=== PATIENT | male | born 1940 | race Caucasian/White ===

== ENCOUNTER 2021-09-16 08:06 | Outpatient (CLI) | payer MEDICARE, OTHER | END 2021-09-16 23:59 | disposition home or self-care (01) | LOC: LAB 08:06 | PROVIDERS: ATTEND Surgery | DX: Z01.812 Encounter for preprocedural laboratory examination (principal); Z20.822 Contact with and (suspected) exposure to COVID-19 ==

== ENCOUNTER 2021-09-18 10:31 | Day surgery (SDC) | payer MEDICARE, OTHER ==
[2021-09-18 11:09] LABS: *BILIRUBIN,URIN NEGATIVE (NEGATIVE); *BLOOD, URINE NEGATIVE (NEGATIVE); *CLARITY,URINE CLEAR (CLEAR); *COLOR,URINE YELLOW (YELLOW); *KETONES,URINE NEGATIVE (NEGATIVE); *UROBILINOGEN,URINE 0.2 E.U./dl (NORMAL); LEUKOCYTE ESTERASE ,URINE NEGATIVE (NEGATIVE); NITRITE, URINE NEGATIVE (NEGATIVE); PH,URINE 5.5 (5.0-8.0); UGLUCOSE NEGATIVE (NEGATIVE)
[2021-09-18 11:09] LABS: HEMATOCRIT 34.6 % (36.7-47.1); MEAN CORPUSCULAR VOLUME 86.3 fL (73.0-96.2); PLATELET COUNT (AUTO) 217 K/uL (152-348)
[2021-09-18 11:21] LABS: CREATININE 1.2 mg/dL (0.6-1.3); POTASSIUM 3.9 mmol/L (3.5-5.1)
[2021-09-18 11:27] LABS: BILIRUBIN,TOTAL 0.8 mg/dL (0.2-1.0); TOTAL PROTEIN, SERUM 7.8 g/dL (6.4-8.2)
== END 2021-09-18 13:15 | disposition home or self-care (01) ==
LOC: DS 10:31
PROVIDERS: ATTEND Surgery
DX: R19.4 Change in bowel habit (principal); Z53.8 Procedure and treatment not carried out for other reasons; I10 Essential (primary) hypertension; E11.9 Type 2 diabetes mellitus without complications; M19.90 Unspecified osteoarthritis, unspecified site; Z79.899 Other long term (current) drug therapy; Z79.01 Long term (current) use of anticoagulants; Z98.890 Other specified postprocedural states
CPT/HCPCS: 71045; 80053; 81003; 85025; 85730; 36415; J7040; A4663